=== PATIENT | male | born 1990 | race Caucasian/White ===

== ENCOUNTER 2021-05-02 18:12 | Emergency (ER) | payer OTHER ==
[~2021-05-02] VITALS: Ht 180.3 cm; Wt 95.2 kg
== END 2021-05-02 23:29 | disposition home or self-care (01) ==
LOC: ED 18:12
DX: B34.9 Viral infection, unspecified (principal); K21.9 Gastro-esophageal reflux disease without esophagitis; Z20.822 Contact with and (suspected) exposure to COVID-19
CPT/HCPCS: 36415; 80053; 81001; 83690; 85025; 99284; A9270; C9803; J7030; U0003

== ENCOUNTER 2021-06-27 09:17 | Inpatient (IN) | payer OTHER ==
[~2021-06-27] VITALS: Ht 180.3 cm; Wt 94.6 kg
[2021-06-27] MEDS ORDERED: LAMOTRIGINE25 MG PO (13:59)
[2021-06-27] MEDS ORDERED: VITAMIN D21250 MCG PO (13:59)
[2021-06-27] MEDS ORDERED: OMEPRAZOLE20 MG PO (14:00)
[2021-06-30] MEDS ORDERED: CEFPODOXIME PR200 MG PO (12:33)
== END 2021-06-30 12:50 | disposition home or self-care (01) | DRG 690 ==
LOC: ED 09:17 → MS 13:06
PROVIDERS: ADMIT Internal Medicine; ATTEND Internal Medicine
DX: N10 Acute pyelonephritis (principal); N17.0 Acute kidney failure with tubular necrosis; Z20.822 Contact with and (suspected) exposure to COVID-19; E86.0 Dehydration; K21.9 Gastro-esophageal reflux disease without esophagitis; T39.395A Adverse effect of other nonsteroidal anti-inflammatory drugs [NSAID], initial encounter; F32.A Depression, unspecified; Z98.890 Other specified postprocedural states; Z88.8 Allergy status to other drugs, medicaments and biological substances
CPT/HCPCS: 36415; 74177; 80048; 80053; 81001; 81241; 82565; 82570; 83690; 84300; 84520; 84550; 85025; 85302; 85305; 85651; 86140; 87088; 93306; 99285-25; A9270; J0696; J2405; J3480; J7030; J7121; Q9967; U0003